=== PATIENT | male | born 1945 | race Two or more races ===

== ENCOUNTER 2018-01-19 14:17 | Outpatient (CLI) | payer OTHER ==
[~2018-01-19 14:17] MED LIST: PERCOCET 5/3251 TAB PO
== END 2018-01-19 16:10 | disposition home or self-care (01) ==
LOC: RAD 501 14:17
DX: N18.3 Chronic kidney disease, stage 3 (moderate) (principal); Z12.9 Encounter for screening for malignant neoplasm, site unspecified

== ENCOUNTER 2018-04-18 11:59 | Outpatient (CLI) | payer OTHER | END 2018-04-18 12:03 | disposition home or self-care (01) | LOC: LAB 11:59 | DX: N39.0 Urinary tract infection, site not specified (principal) ==

== ENCOUNTER 2019-03-01 11:48 | Outpatient (CLI) | payer OTHER | END 2019-03-01 13:09 | disposition home or self-care (01) | LOC: RAD 11:48 | DX: M25.562 Pain in left knee (principal) ==

== ENCOUNTER 2019-03-01 14:18 | Outpatient (CLI) | payer OTHER | END 2019-03-01 14:28 | disposition home or self-care (01) | LOC: NUCLEAR 14:18 | DX: M81.0 Age-related osteoporosis without current pathological fracture (principal) ==

== ENCOUNTER 2019-03-08 13:21 | Outpatient (CLI) | payer OTHER | END 2019-03-08 13:28 | disposition home or self-care (01) | LOC: RAD 13:21 | DX: Z76.89 Persons encountering health services in other specified circumstances (principal); M79.652 Pain in left thigh; M79.605 Pain in left leg ==

== ENCOUNTER → 2019-03-27 06:15 | Outpatient (CLI) | payer OTHER ==
[~2019-03-27 06:15] MED LIST changes: +COZAAR25 MG PO; +NORVASC2.5 M1 PO; +TIROSINT137 MCG PO; +TOPROL XL50 MG PO
== END | disposition home or self-care (01) ==
LOC: LAB 06:15
DX: D64.89 Other specified anemias (principal); D68.8 Other specified coagulation defects; N39.0 Urinary tract infection, site not specified; Z22.322 Carrier or suspected carrier of Methicillin resistant Staphylococcus aureus; E55.9 Vitamin D deficiency, unspecified; E88.89 Other specified metabolic disorders; M85.88 Other specified disorders of bone density and structure, other site; M81.8 Other osteoporosis without current pathological fracture; E56.1 Deficiency of vitamin K; Z76.89 Persons encountering health services in other specified circumstances; I49.8 Other specified cardiac arrhythmias

== ENCOUNTER 2019-03-30 16:30 | Inpatient (IN) | payer OTHER ==
[~2019-03-30] VITALS: Ht 180.3 cm; Wt 84.8 kg
== END 2019-04-13 12:10 | disposition home or self-care (01) | DRG 470 ==
LOC: SURG 04-05 14:30 → SURH 04-10 10:50 → O/R 04-10 10:50 → SURG 04-10 14:30 → SURH 04-10 18:02
PROVIDERS: ADMIT Orthopaedic Surgery
PROC: 0SRD0J9 Replacement of Left Knee Joint with Synthetic Substitute, Cemented, Open Approach (ICD-10-PCS; principal; 2019-04-10 07:00)
DX: M17.12 Unilateral primary osteoarthritis, left knee (principal); D62 Acute posthemorrhagic anemia; E03.8 Other specified hypothyroidism; I10 Essential (primary) hypertension; I12.9 Hypertensive chronic kidney disease with stage 1 through stage 4 chronic kidney disease, or unspecified chronic kidney disease; N18.2 Chronic kidney disease, stage 2 (mild)

== ENCOUNTER 2019-07-19 08:12 | Outpatient (CLI) | payer OTHER | END 2019-07-19 09:00 | disposition home or self-care (01) | LOC: NUCLEAR 08:12 | DX: C61 Malignant neoplasm of prostate (principal) | CPT/HCPCS: 78320; A9503 ==

== ENCOUNTER 2019-10-07 10:48 | Outpatient (CLI) | payer OTHER | END 2019-10-07 12:01 | disposition home or self-care (01) | LOC: SONOGRAMA 10:48 → MAMO-SONO 11:15 → SONOGRAMA 12:01 | DX: C73 Malignant neoplasm of thyroid gland (principal) ==

== ENCOUNTER → 2020-09-05 | Outpatient (CLI) | payer OTHER | END | disposition home or self-care (01) | LOC: TOM 09:05 | PROVIDERS: ATTEND Internal Medicine Gastroenterology | DX: K86.2 Cyst of pancreas (principal); R10.84 Generalized abdominal pain; R63.4 Abnormal weight loss; Z85.46 Personal history of malignant neoplasm of prostate; Z85.850 Personal history of malignant neoplasm of thyroid; R63.0 Anorexia | CPT/HCPCS: 74160; Q9965 ==